=== PATIENT | female | born 1985 ===

== ENCOUNTER 2017-10-13 16:07 | Emergency (ER) | payer MEDICAID, OTHER ==
--- NOTE | 2017-10-13 17:33 | ED PDOC ---
HPI: General Adult Time Seen by Provider: 10/13/17 16:30 Chief Complaint (Nursing): Headache Chief Complaint (Provider): Headache History Per: Patient History/Exam Limitations: no limitations Current Symptoms Are (Timing): Still Present Additional Complaint(s): 32 year old female presents to the emergency department with a complaint of generalized weakness and a discomfort to the frontal region of her head that started this morning. Reports she felt like she was going to pass out. States she has experienced similar situations in the past, approximately about 1 month ago that resolved. Patient went to work this morning, picked up her child after school, and came to the emergency department after her child hurt his lower extremity while playing soccer. Denies fever or chills. PMD: Dr. Andrea COOPER Past Medical History Reviewed: Historical Data, Nursing Documentation, Vital Signs Vital Signs: Last Vital Signs Temp 98 F 10/13/17 16:10 Pulse 98 H 10/13/17 16:10 Resp 16 10/13/17 16:10 BP 112/75 10/13/17 16:10 Pulse Ox 100 10/13/17 18:50 - Medical History PMH: No Chronic Diseases - Surgical History Surgical History: No Surg Hx - Family History Family History: States: Unknown Family Hx - Social History Current smoker - smoking cessation education provided: No Alcohol: None Drugs: Denies - Home Medications Home Medications: Ambulatory Orders Medication Instructions Recorded Methylprednisolone [Medrol Dose 4 mg PO ASDIR #21 mg 02/20/16 Pack (21 tabs)] - Allergies Allergies/Adverse Reactions: Allergies Allergy/AdvReac Type Severity Reaction Status Date / Time No Known Allergies Allergy Verified 02/19/16 20:09 Review of Systems ROS Statement: Except As Marked, All Systems Reviewed And Found Negative (as per HPI, otherwise negative) Constitutional: Positive for: Weakness (generalized), Other (discomfort to the frontal region of her head). Negative for: Fever, Chills Physical Exam - Reviewed Nursing Documentation Reviewed: Yes Vital Signs Reviewed: Yes - Physical Exam Appears: Positive for: Well, Non-toxic, No Acute Distress Head Exam: Positive for: ATRAUMATIC, NORMAL INSPECTION, NORMOCEPHALIC Skin: Positive for: Normal Color, Warm, Dry Eye Exam: Positive for: Normal appearance, EOMI Cardiovascular/Chest: Positive for: Regular Rate, Rhythm. Negative for: Murmur Respiratory: Positive for: Normal Breath Sounds. Negative for: Accessory Muscle Use, Wheezing, Respiratory Distress Gastrointestinal/Abdominal: Positive for: Normal Exam, Soft. Negative for: Tenderness Extremity: Positive for: Normal ROM. Negative for: Pedal Edema Neurologic/Psych: Positive for: Alert, Oriented (x3), Gait (Steady) - Laboratory Results Result Diagrams: 10/13/17 17:45 10/13/17 17:45 - ECG O2 Sat by Pulse Oximetry: 100 (RA) Pulse Ox Interpretation: Normal Medical Decision Making Medical Decision Making: Time: 1720 Initial impression: Generalized weakness Initial plan: CMP Urine DIP & Preg CBC w/ diff Reevaluation Time: 1824 Tylenol 650 mg PO Scribe Attestation: Documented by Nancy Gonzalez, acting as a scribe for Teresa Eagle PA-C. Provider Scribe Attestation: All medical record entries made by the Scribe were at my direction and personally dictated by me. I have reviewed the chart and agree that the record accurately reflects my personal performance of the history, physical exam, medical decision making, and the department course for this patient. I have also personally directed, reviewed, and agree with the discharge instructions and disposition. Disposition - Clinical Impression Clinical Impression: Headache - Patient ED Disposition Is Patient to be Admitted: No Counseled Patient/Family Regarding: Diagnosis, Need For Followup - Disposition Disposition: Routine/Home Disposition Time: 18:59 Condition: STABLE Instructions: Tension Headache Forms: [facility] (Taiwanese) Print Language: BRUNEIAN
[2017-10-13 17:53] LABS: BASO % 0.6 % (0.0-2.0); EOS % 0.4 % (0.0-4.0); HEMOGLOBIN 13.6 g/dL (12.0-16.0); LYMPH # 2.7 K/uL (1.0-4.3); MEAN CELL VOLUME 91.1 fl (81.0-99.0); MEAN CORPUSCULAR HEMOGLOBIN 30.7 pg (27.0-31.0); MEAN CORPUSCULAR HGB CONC 33.7 g/dL (33.0-37.0); MEAN PLATELET VOLUME 8.2 fl (7.2-11.7); MONO # 0.6 K/uL (0.0-0.8); MONO % 7.9 % (0.0-10.0); NEUT # 3.8 K/uL (1.8-7.0); NEUT % 53.1 % (50.0-75.0); NRBC % 0.2 % (0.0-0.0); RBC 4.41 Mil/uL (3.80-5.20); RED CELL DISTRIBUTION WIDTH 13.6 % (11.5-14.5); WHITE BLOOD COUNT 7.2 K/uL (4.8-10.8)
[2017-10-13 17:59] LABS: ALB/GLOB RATIO 1.2 (1.0-2.1); ALBUMIN 3.8 g/dL (3.5-5.0); ALT/SGPT 43 U/L (9-52); AST/SGOT 30 U/L (14-36); BLOOD UREA NITROGEN 11 mg/dl (7-17); CALCIUM 8.7 mg/dL (8.4-10.2); GFR AFRICAN-AMERICAN > 60; GFR NON-AFRICAN AMERICAN > 60
[2017-10-13 19:25] VITALS: BP 112/68; PULSE 78; RESP 18; TEMP 98.1; O2SAT 99
== END 2017-10-13 19:25 | disposition home or self-care (01) ==
LOC: H.ER 16:07
DX: R51 Headache (principal)